=== PATIENT | male | born 1980 | race Two or more races ===

== ENCOUNTER 2023-01-04 07:14 | Emergency (ER) | payer OTHER ==
[~2023-01-04] VITALS: Ht 172.7 cm; Wt 101.9 kg
[2023-01-04 08:00] VITALS: BP 153/99
[2023-01-04] MEDS ORDERED: LIDOCAINE 1% HCL (LOCAL ANESTH.) INJ 20ML MDV IJ ONE (08:45)
[2023-01-04] MEDS ORDERED: AMOX500T86 PO (09:10)
== END 2023-01-04 09:14 | disposition home or self-care (01) ==
LOC: ER 07:14
DX: S81.812A Laceration without foreign body, left lower leg, initial encounter (principal); W54.0XXA Bitten by dog, initial encounter; Y93.89 Activity, other specified; Y92.89 Other specified places as the place of occurrence of the external cause; Y99.8 Other external cause status
CPT/HCPCS: 12002; 99283; J2001